=== PATIENT | male | born 1950 | race Caucasian/White ===

== ENCOUNTER 2021-05-29 14:20 | Inpatient (IN) | payer MEDICARE, BC ==
[~2021-05-29] VITALS: Ht 193 cm; Wt 83.0 kg
[2021-05-29] MEDS ORDERED: ELIQUIS (14:34)
[2021-05-29] MEDS ORDERED: CARVEDILOL (14:34)
[2021-05-29] MEDS ORDERED: METFORMIN (14:34)
[2021-05-29] MEDS ORDERED: IV NORMAL SALINE 1000 ML BAG IV ONE ×2 (14:45→16:30)
[2021-05-29 14:57] LABS: HEMATOCRIT 27.6 % (36.7-47.1); MEAN CORPUSCULAR VOLUME 98.7 fL (73.0-96.2); PLATELET COUNT (AUTO) 313 K/uL (152-348)
[2021-05-29 15:11] LABS: *BILIRUBIN,URIN NEGATIVE (NEGATIVE); *BLOOD, URINE 2+ (NEGATIVE); *CLARITY,URINE CLOUDY (CLEAR); *COLOR,URINE YELLOW (YELLOW); *KETONES,URINE NEGATIVE (NEGATIVE); *UROBILINOGEN,URINE 0.2 E.U./dl (NORMAL); LEUKOCYTE ESTERASE ,URINE 1+ (NEGATIVE); NITRITE, URINE NEGATIVE (NEGATIVE); PH,URINE 5.5 (5.0-8.0); UGLUCOSE NEGATIVE (NEGATIVE)
[2021-05-29 15:11] LABS: ALANINE AMINOTRANSFERASE 26 U/L (16-63); ALKALINE PHOSPHATASE 145 U/L (50-136); ASPARTATE AMINOTRANSFERASE 11 U/L (15-37); BILIRUBIN,DIRECT 0.2 mg/dL (0.0-0.2); BILIRUBIN,TOTAL 0.7 mg/dL (0.2-1.0); CARBON DIOXIDE 25 mmol/L (21-32); CHLORIDE 91 mmol/L (98-107); CREATININE 1.7 mg/dL (0.6-1.3); GLUCOSE 248 mg/dL (74-106); POTASSIUM 5.2 mmol/L (3.5-5.1); TOTAL PROTEIN, SERUM 7.5 g/dL (6.4-8.2); UREA NITROGEN, BLOOD 30 mg/dL (7-18)
[2021-05-29] MEDS ORDERED: PIPERACILLIN SODIUM/TAZOBACTAM 3.375 G in IV DEXTROSE 5% 50 ML IV ONE (15:30)
[2021-05-29] MEDS ORDERED: PIPERACILLIN/TAZOBACTAM/D5W 50 ML IV ONE (16:29)
[2021-05-29 17:12] LABS: BACTERIA,URINE MODERATE /HPF (NONE SEEN); SQUAMOUS EPITHELIAL CELL,UR FEW /HPF (NONE SEEN); WBC,URINE TNTC /HPF (0-3)
[2021-05-29] MEDS ORDERED: POLY17PO4 PO (18:12)
[2021-05-29] MEDS ORDERED: DOCU-141 PO (18:12)
[2021-05-29] MEDS ORDERED: PRAV40TA3 PO (18:12)
[2021-05-29] MEDS ORDERED: GABA-532 PO ×2 (18:12)
[2021-05-29] MEDS ORDERED: TAMS-3 PO (18:12)
[2021-05-29] MEDS ORDERED: OXYC5TAB3 PO (18:12)
[2021-05-29] MEDS ORDERED: BETH10TA2 PO (18:12)
[2021-05-29] MEDS ORDERED: AMIO100T4 PO (18:12)
[2021-05-29] MEDS ORDERED: CARV3.122 PO (18:12)
[2021-05-29] MEDS ORDERED: ALEN70TA80 PO (18:12)
[2021-05-29] MEDS ORDERED: PANT40TA2 PO (18:12)
[2021-05-29] MEDS ORDERED: BETH1POW2 MC (18:12)
[2021-05-29] MEDS ORDERED: MARA300T4 PO (18:12)
[2021-05-29] MEDS ORDERED: APIX5TAB PO (18:12)
[2021-05-29] MEDS ORDERED: RALT400T PO (18:12)
[2021-05-29] MEDS ORDERED: VALA500T34 PO (18:12)
[2021-05-29] MEDS ORDERED: METF-494 PO (18:12)
[2021-05-29] MEDS ORDERED: SENN-18 PO (18:12)
[2021-05-29] MEDS ORDERED: EMTR1TAB13 PO (18:12)
[2021-05-29] MEDS ORDERED: FERR325T28 PO (18:12)
[2021-05-29] MEDS ORDERED: [UNRECOGNIZED DRUG - CODE] PO (18:12)
[2021-05-29] MEDS ORDERED: FAMO40TA7 PO (18:12)
[2021-05-29] MEDS ORDERED: VANCOMYCIN IV 1,000 MG in IV DEXTROSE 5% 250 ML IV ONE (18:15)
[2021-05-29] MEDS ORDERED: VANCOMYCIN IV 200 ML ONE (18:23)
[2021-05-29 19:07] LABS: BAND % (MANUAL) 14 % (0-10); LYMPHOCYTES % (MANUAL) 9 % (20-40); METAMYELOCYTES % 7 % (0-1); MONOCYTES % (MANUAL) 8 % (2-10); NEUTROPHILS % (MANUAL) 62 % (42-75)
[2021-05-29] MEDS ORDERED: MIRALAX 17 GM POWD.PACK PO PRN (19:45)
[2021-05-29 20:00] VITALS: BP 103/62
[2021-05-29] MEDS ORDERED: DEXTROSE 50% 50 ML DISP.SYRIN IV PRN (20:00)
[2021-05-29] MEDS ORDERED: ONDANSETRON 4 MG/2 ML VIAL IV PRN (20:00)
[2021-05-29] MEDS ORDERED: ACETAMINOPHEN 325 MG TABLET PO PRN (20:00)
[2021-05-29] MEDS ORDERED: AMIO200T5 PO (20:45)
[2021-05-29] MEDS: TAMSULOSIN HCL 0.4 MG CAP.SR.24H PO SCH (20:54)
[2021-05-29] MEDS: SENNOSIDES 1 TABLET PO SCH (20:54)
[2021-05-29] MEDS: OXYCODONE HCL 5 MG TABLET PO PRN (20:54)
[2021-05-29] MEDS: IV NS 1000 ML 1,000 ML IV PRN (21:23)
[2021-05-29] MEDS: CEFTRIAXONE 1 G in IV DEXTROSE 5% 50 ML IV SCH (22:20)
[2021-05-29] MEDS: BLOOD SUGAR DIAGNOSTIC 1 EACH STRIP VI SCH (22:20)
[2021-05-29] MEDS: INSULIN REGULAR, HUMAN 300 UNIT/3 ML VIAL SQ PRN (22:30)
[2021-05-30 04:06] VITALS: BP 103/58
[2021-05-30] MEDS: BLOOD SUGAR DIAGNOSTIC 1 EACH STRIP VI SCH ×4 (05:22→21:02)
[2021-05-30] MEDS: PANTOPRAZOLE SODIUM 40 MG TABLET.DR PO SCH (05:23)
[2021-05-30 06:21] LABS: BILIRUBIN,TOTAL 0.5 mg/dL (0.2-1.0); MAGNESIUM 2.1 mg/dL (1.8-2.4); PHOSPHOROUS 2.7 mg/dL (2.5-4.9); POTASSIUM 4.2 mmol/L (3.5-5.1); TOTAL PROTEIN, SERUM 6.6 g/dL (6.4-8.2)
[2021-05-30 06:24] LABS: HEMATOCRIT 22.4 % (36.7-47.1); MEAN CORPUSCULAR HEMOGLOBIN 33.4 uug (23.8-33.4); PLATELET COUNT (AUTO) 234 K/uL (152-348)
[2021-05-30 07:02] LABS: BAND % (MANUAL) 6 % (0-10); EOSINOPHILS % (MANUAL) 1 % (0-8); LYMPHOCYTES % (MANUAL) 22 % (20-40); METAMYELOCYTES % 9 % (0-1); MONOCYTES % (MANUAL) 11 % (2-10); NEUTROPHILS % (MANUAL) 51 % (42-75)
[2021-05-30] MEDS ORDERED: IV NORMAL SALINE 0 ML IV ONE (07:43)
[2021-05-30] MEDS ORDERED: SWABABLE VALVE TRANSFER SET EA MC ONE ×2 (07:43→15:43)
[2021-05-30] MEDS ORDERED: IOHEXOL 300MG/ML 100 ML INFUS..BTL ONE (07:43)
[2021-05-30 08:07] VITALS: BP 108/69
[2021-05-30] MEDS: DOCUSATE SODIUM 100 MG CAPSULE PO SCH ×3 (08:51→22:23)
[2021-05-30] MEDS: AMIODARONE HCL 200 MG TABLET PO SCH (08:52)
[2021-05-30] MEDS: FERROUS SULFATE 325 MG TABEC PO SCH (08:52)
[2021-05-30] MEDS: BETHANECHOL CHLORIDE 10 MG TABLET PO SCH ×3 (08:53→17:25)
[2021-05-30] MEDS: INSULIN REGULAR, HUMAN 300 UNIT/3 ML VIAL SQ PRN ×4 (08:57→21:04)
[2021-05-30] MEDS ORDERED: Emtricitabine/Tenofov Alafenam (Descovy 200-25 mg Tablet PO SCH (09:00)
[2021-05-30] MEDS ORDERED: AMIODARONE HCL 200 MG TABLET PO SCH (09:00)
[2021-05-30 12:00] VITALS: BP 109/53
[2021-05-30] MEDS ORDERED: HOME MED MISCELLANEOUS XX SCH (14:45)
[2021-05-30] MEDS ORDERED: HEPARIN SODIUM,PORCINE 5,000 UNITS/ML VIAL IV ONE (15:00)
[2021-05-30] MEDS ORDERED: ACYCLOVIR 200 MG CAPSULE PO SCH (15:00)
[2021-05-30] MEDS: HEPARIN/D5W DRIP 500 ML IV PRN (15:12)
[2021-05-30] MEDS: DESCOVY PO SCH (15:20)
[2021-05-30] MEDS ORDERED: IV NORMAL SALINE 250 ML IV ONE (15:43)
[2021-05-30] MEDS ORDERED: IOHEXOL 350 100 ML INFUS..BTL ONE (15:43)
[2021-05-30 16:00] VITALS: BP 113/68
[2021-05-30] MEDS: [UNRECOGNIZED DRUG - OTHER] PO SCH (17:25)
[2021-05-30] MEDS: ETRAVIRINE 200 MG PO SCH (17:25)
[2021-05-30] MEDS: RALTEGRAVIR PO SCH (17:25)
[2021-05-30] MEDS: MARAVIROC 300 MG PO SCH (17:25)
[2021-05-30] MEDS: [UNRECOGNIZED DRUG - OTHER] PO SCH (17:25)
[2021-05-30] MEDS: CALCIUM CARBONATE 500 MG TAB.CHEW PO PRN ×2 (17:25→22:00)
[2021-05-30] MEDS: [UNRECOGNIZED DRUG - OTHER] PO SCH (17:25)
[2021-05-30 19:20] LABS: *BILIRUBIN,URIN NEGATIVE (NEGATIVE); *BLOOD, URINE 2+ (NEGATIVE); *COLOR,URINE YELLOW (YELLOW); *KETONES,URINE NEGATIVE (NEGATIVE); *UROBILINOGEN,URINE 0.2 E.U./dl (NORMAL); LEUKOCYTE ESTERASE ,URINE TRACE (NEGATIVE); NITRITE, URINE NEGATIVE (NEGATIVE)
[2021-05-30 19:27] LABS: *URINE TOTAL PROTEIN RANDOM 94.5 mg/dL (<150/24HR); UGLUCOSE 3+ (NEGATIVE)
[2021-05-30 19:35] LABS: *CLARITY,URINE HAZY (CLEAR)
[2021-05-30 19:36] LABS: BACTERIA,URINE FEW /HPF (NONE SEEN); SQUAMOUS EPITHELIAL CELL,UR FEW /HPF (NONE SEEN); WBC,URINE 20-50 /HPF (0-3)
[2021-05-30] MEDS: SENNOSIDES 1 TABLET PO SCH (21:02)
[2021-05-30] MEDS: TAMSULOSIN HCL 0.4 MG CAP.SR.24H PO SCH (21:02)
[2021-05-30] MEDS: CEFTRIAXONE 1 G in IV DEXTROSE 5% 50 ML IV SCH (21:15)
[2021-05-30] MEDS: MIRALAX 17 GM POWD.PACK PO SCH (22:23)
[2021-05-31] MEDS: PANTOPRAZOLE SODIUM 40 MG TABLET.DR PO SCH (06:01)
[2021-05-31] MEDS: BLOOD SUGAR DIAGNOSTIC 1 EACH STRIP VI SCH ×3 (06:01→16:54)
[2021-05-31 06:17] LABS: HEMATOCRIT 22.9 % (36.7-47.1); MEAN CORPUSCULAR VOLUME 98.4 fL (73.0-96.2); PLATELET COUNT (AUTO) 235 K/uL (152-348)
[2021-05-31 06:35] LABS: BILIRUBIN,TOTAL 0.7 mg/dL (0.2-1.0); CREATININE 0.8 mg/dL (0.6-1.3); PHOSPHOROUS 2.7 mg/dL (2.5-4.9); POTASSIUM 3.9 mmol/L (3.5-5.1); TOTAL PROTEIN, SERUM 6.4 g/dL (6.4-8.2)
[2021-05-31 06:57] LABS: BAND % (MANUAL) 5 % (0-10); EOSINOPHILS % (MANUAL) 3 % (0-8); LYMPHOCYTES % (MANUAL) 30 % (20-40); METAMYELOCYTES % 4 % (0-1); MONOCYTES % (MANUAL) 8 % (2-10); NEUTROPHILS % (MANUAL) 50 % (42-75)
[2021-05-31 07:07] LABS: CARBOHYDRATE ANTIGEN, 19-9 91 U/mL (0-35)
[2021-05-31] MEDS: HEPARIN/D5W DRIP 500 ML IV PRN (07:11)
[2021-05-31 07:59] VITALS: BP 105/68
[2021-05-31] MEDS: FERROUS SULFATE 325 MG TABEC PO SCH (08:12)
[2021-05-31] MEDS: [UNRECOGNIZED DRUG - OTHER] PO SCH ×2 (08:12→16:39)
[2021-05-31] MEDS: MARAVIROC 300 MG PO SCH ×2 (08:12→16:40)
[2021-05-31] MEDS: RALTEGRAVIR PO SCH ×2 (08:12→16:39)
[2021-05-31] MEDS: [UNRECOGNIZED DRUG - OTHER] PO SCH ×2 (08:12→16:40)
[2021-05-31] MEDS: DOCUSATE SODIUM 100 MG CAPSULE PO SCH (08:12)
[2021-05-31] MEDS: DESCOVY PO SCH (08:13)
[2021-05-31] MEDS: BETHANECHOL CHLORIDE 10 MG TABLET PO SCH ×3 (08:13→16:40)
[2021-05-31] MEDS: [UNRECOGNIZED DRUG - OTHER] PO SCH ×2 (08:13→16:39)
[2021-05-31] MEDS: ETRAVIRINE 200 MG PO SCH ×2 (08:13→16:39)
[2021-05-31] MEDS: MIRALAX 17 GM POWD.PACK PO SCH (08:17)
[2021-05-31] MEDS: AMIODARONE HCL 200 MG TABLET PO SCH (08:18)
[2021-05-31] MEDS: INSULIN REGULAR, HUMAN 300 UNIT/3 ML VIAL SQ PRN ×3 (08:33→17:10)
[2021-05-31] MEDS ORDERED: VALACYCLOVIR 500 MG PO SCH (09:00)
[2021-05-31 11:07] LABS: *IMMUNOGLOBULIN G, SERUM 971 mg/dL (603-1613); IMMUNOGLOBULIN A, SERUM 254 mg/dL (61-437); IMMUNOGLOBULIN M, SERUM 48 mg/dL (15-143)
[2021-05-31 11:44] VITALS: BP 101/66
[2021-05-31] MEDS ORDERED: ENOXAPARIN SODIUM 80 MG/0.8 ML DISP.SYRIN SQ SCH (12:00)
[2021-05-31 12:06] LABS: ALBUMIN 3.2 g/dL (2.9-4.4); ALPHA-1-GLOBULIN 0.4 g/dL (0.0-0.4); ALPHA-2-GLOBULIN 0.9 g/dL (0.4-1.0); GAMMA GLOBULIN 0.9 g/dL (0.4-1.8); GLOBULIN, TOTAL 3.2 g/dL (2.2-3.9); M-SPIKE Not Observed g/dL (Not Observed)
[2021-05-31] MEDS ORDERED: SWABABLE VALVE TRANSFER SET EA MC ONE (13:24)
[2021-05-31] MEDS ORDERED: IOHEXOL 350 100 ML INFUS..BTL ONE (13:24)
[2021-05-31] MEDS ORDERED: IV NORMAL SALINE 250 ML IV ONE (13:24)
[2021-05-31] MEDS: IV NS 1000 ML 1,000 ML IV PRN (14:49)
[2021-05-31] MEDS: OXYCODONE HCL 5 MG TABLET PO PRN (15:41)
[2021-05-31] MEDS ORDERED: GLUCERNA SHAKE VANILLA 237 ML CAN PO SCH (17:00)
[2021-05-31 19:53] VITALS: BP 108/64
[2021-06-01 14:06] LABS: A/G RATIO 0.8 (0.7-1.7); ALBUMIN 2.7 g/dL (2.9-4.4); ALPHA-1-GLOBULIN 0.3 g/dL (0.0-0.4); ALPHA-2-GLOBULIN 0.8 g/dL (0.4-1.0); BETA GLOBULIN 0.9 g/dL (0.7-1.3); GAMMA GLOBULIN 1.5 g/dL (0.4-1.8); GLOBULIN, TOTAL 3.5 g/dL (2.2-3.9); M-SPIKE Not Observed g/dL (Not Observed)
== END 2021-05-31 20:04 | disposition short-term general hospital (02) | DRG 871 ==
LOC: ER 14:20 → TELE-TD3 18:14 → CCU 05-31 13:25
PROVIDERS: ADMIT Internal Medicine; ATTEND Internal Medicine
DX: A41.9 Sepsis, unspecified organism (principal); N17.0 Acute kidney failure with tubular necrosis; R65.21 Severe sepsis with septic shock; N39.0 Urinary tract infection, site not specified; E87.1 Hypo-osmolality and hyponatremia; J98.11 Atelectasis; E00-E89 Endocrine, nutritional and metabolic diseases; K86.2 Cyst of pancreas; Z20.822 Contact with and (suspected) exposure to COVID-19; B96.1 Klebsiella pneumoniae [K. pneumoniae] as the cause of diseases classified elsewhere; E86.1 Hypovolemia; Z89.511 Acquired absence of right leg below knee; Z86.711 Personal history of pulmonary embolism; Z79.01 Long term (current) use of anticoagulants; E11.65 Type 2 diabetes mellitus with hyperglycemia; E87.5 Hyperkalemia; I10 Essential (primary) hypertension; I25.10 Atherosclerotic heart disease of native coronary artery without angina pectoris; K59.00 Constipation, unspecified; N40.1 Benign prostatic hyperplasia with lower urinary tract symptoms; R33.8 Other retention of urine; Z87.828 Personal history of other (healed) physical injury and trauma; D53.9 Nutritional anemia, unspecified; Z79.899 Other long term (current) drug therapy; Z87.891 Personal history of nicotine dependence; Z86.718 Personal history of other venous thrombosis and embolism; Z90.81 Acquired absence of spleen; Z90.411 Acquired partial absence of pancreas; Z95.5 Presence of coronary angioplasty implant and graft; Z96.643 Presence of artificial hip joint, bilateral; Z98.1 Arthrodesis status; M51.36 Other intervertebral disc degeneration, lumbar region; M43.06 Spondylolysis, lumbar region; R94.8 Abnormal results of function studies of other organs and systems; I48.91 Unspecified atrial fibrillation; F10.11 Alcohol abuse, in remission; Z79.84 Long term (current) use of oral hypoglycemic drugs; Z85.07 Personal history of malignant neoplasm of pancreas; Z87.09 Personal history of other diseases of the respiratory system
CPT/HCPCS: 36415; 70030-TC; 71045; 71275; 82747; 82784; 83550; 83605; 83735; 83970; 84100; 84155; 84156; 84165; 84300; 84443; 84484; 85014; 85025; 85730; 86301; 86334; 87040; 87077; 87086; 93005; A4663; C1758; G0378; J0696; J1644; J1650; J1815; J2543; J3370; J7030; J7040; J7050; J7060; Q9967